=== PATIENT | female | born 1955 | race Caucasian/White ===

== ENCOUNTER 2016-08-01 09:34 | Outpatient (CLI) | payer BC ==
[2016-08-01 10:31] LABS: eGFR (African) > 60; eGFR (Non-African) > 60
--- NOTE | 2016-08-01 18:52 | Diagnostic Imaging Report ---
JAKOB COOL [facility] [address] [facility].[address] [address] Report Submission Date: Aug 01, 2016 10:03:24 AM CDT Patient Study Name: KENDY OTERO Date: Aug 01, 2016 9:42:42 AM CDT Modality Type: CR Gender: F Description: LOWER EXTREMITY : 59 Institution: [facility] Physician: JAKOB COOL Right foot 3 views History: Lateral foot pain for 4 months Findings: A small bunion is present. A moderate sized plantar heel spur is present. There is no fracture, dislocation, arthropathy, or focal bone lesion. Impression: Heel spur and bunion. Electronically signed on Aug 01, 2016 10:03:24 AM CDT by: Lio STEVEN
== END 2016-08-01 09:35 ==
LOC: LAB 09:34
PROVIDERS: ATTEND Family Medicine
DX: M79.671 Pain in right foot (principal); I10 Essential (primary) hypertension; R59.1 Generalized enlarged lymph nodes; Z11.59 Encounter for screening for other viral diseases
CPT/HCPCS: 36415; 73630; 80053; 80061; 85027; 86803

== ENCOUNTER 2016-08-07 13:06 | Outpatient (CLI) | payer BC ==
--- NOTE | 2016-08-08 15:13 | OP Clinic Progress Note ---
REFERRING PHYSICIAN: Dr. Khoa Muñoz REASON FOR VISIT: This 60-year-old female was seen with a mass in her left cheek area. She has noted this for about a month. It is not really painful. Patient does not smoke. 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 There is a 2 cm mass in the preauricular area on the left side. There is no gross cervical lymphadenopathy, although there is a moderate amount of adipose tissue. I do not feel a mass on the right side. 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 I went over risks, problems, complications. These include, but are not limited to, the incision which would leave a scar somewhat like a facelift-type of incision. There can be numbness. There can be facial nerve paralysis on a permanent basis looking like a stroke and causing orbital dryness and airway blockage, problems swallowing, whistling, talking, and multiple other issues. The possibility of needing additional surgery and additional treatment and recurrence of tumors. Again, I clearly went over the facial nerve anatomy. Postoperatively, we will be using pressure dressings until the wound dries up, which may be a week to 10 days and occasionally longer. A possibility of Kashif syndrome with gustatory sweating. The patient feels that she is well informed and so states. Though it is not essential to get an x-ray, I believe a CT scan with contrast may give some additional information. The patient, again, states that she feels comfortable. I have offered her a second opinion and she has declined this. CC: Dr. Koha STEVEN
== END 2016-08-07 13:07 ==
LOC: ENT 13:06
PROVIDERS: ATTEND Otolaryngology
DX: R22.1 Localized swelling, mass and lump, neck (principal)
CPT/HCPCS: 99203

== ENCOUNTER 2016-08-08 10:50 | Outpatient (CLI) | payer BC ==
--- NOTE | 2016-08-09 07:18 | Diagnostic Imaging Report ---
MELLISA SNEED [facility] [address] [facility].[address] [address] Report Submission Date: Aug 08, 2016 11:19:20 PM CDT Patient Study Name: KENDY OTERO Date: Aug 08, 2016 11:23:44 AM CDT Modality Type: CT\SR Gender: F Description: CT NECK SOFT TISSUE W/ : 59 Institution: [facility] Physician: MELLISA SNEED Computed tomography of the neck with contrast History: Left facial mass for 3 weeks Findings: Transverse neck sections are obtained after 89 mL intravenous omnipaque 350. An indeterminate hypodense nodule is present in the anterior superior aspect of the superficial lobe of the left parotid gland, measuring 1.7 x 1.8 x 2.1 cm. The lesion measures water density and is therefore potentially cystic. The thyroid, submandibular glands, and right parotid gland are normal. The larynx, pharynx, parapharyngeal spaces, and prevertebral space are normal. Lung apices are clear. There is no evidence of lymphadenopathy or inflammatory lesion. Visualized sinuses are clear. Moderate C6/C7 spondylosis is present. Impression: 1. Indeterminate 2.1 cm anterior left parotid nodule, possibly cystic. 2. C6/C7 spondylosis. Electronically signed on Aug 08, 2016 11:19:20 PM CDT by: Lio STVEEN
== END 2016-08-08 10:52 ==
LOC: RAD 10:50
PROVIDERS: ATTEND Otolaryngology
DX: R22.1 Localized swelling, mass and lump, neck (principal); Z04.9 Encounter for examination and observation for unspecified reason
CPT/HCPCS: 70491; Q9966

== ENCOUNTER 2016-08-14 12:49 | Outpatient (CLI) | payer BC ==
--- NOTE | 2016-08-15 12:00 | OP Clinic Progress Note ---
REFERRING PHYSICIAN: Dr. Khoa Muñoz REASON FOR VISIT: This 60-year-old lady has had a mass that is progressively enlarging in her left cheek. On a CT scan, there appears to be a mass in the superficial lobe of the parotid. It is fairly asymptomatic. Patient simply wanted to have it excised. I described parotid surgery with specific risks of facial nerve paralysis, either the whole nerve or part of the nerve, temporary or permanent, looking like a paralyzed face, eyelid droop, drooling, nasal airway obstruction, sagging face, not really being able to be corrected. The patient is clear about these issues. We went over it in the first clinic visit and I have gone over it in the second clinic visit. I showed the patient both reading the CT report and looking at the CT itself with her. She has been offered additional opinions, having somebody else do the surgery, not have surgery, needle sticks, fine-needle aspiration, and other issues. The patient feels like she understands and each time has acknowledged understanding of options and choices and different ways to go about surgery and being welcome to second opinions, facial nerve paralysis, numbness, Kashif Syndrome, and multiple issues. PLAN: Patient chooses to go ahead with the surgery and that is being arranged. cc: Dr. Khoa STEVEN
== END 2016-08-14 12:50 ==
LOC: ENT 12:49
PROVIDERS: ATTEND Otolaryngology
DX: R22.0 Localized swelling, mass and lump, head (principal)
CPT/HCPCS: 99203

== ENCOUNTER 2016-08-21 14:38 | Outpatient (CLI) | payer BC ==
--- NOTE | 2016-08-24 08:39 | OP Clinic Progress Note ---
REFERRING PHYSICIAN: Dr. Khoa Muñoz REASON FOR VISIT: Jo Ann is seen 2 days after her left-sided parotid surgery. 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 Postoperatively, she is doing overall well. She has a drain in and a pressure dressing of which she is attending to very well, along with her mother. It is only draining a moderately small amount of fairly clear serous/salivary tissue. The incision line appears to be healing well. She is taking an oral antibiotic in the form of Cipro 500 mg twice a day. PLAN: I would tend to leave the pressure dressing on and the drain in a while longer. She will set up an appointment in about 4 or 5 days for the office. If it seems like it is drying up here within about 48 hours from now, it is possible the drain might be removed sooner. I have reviewed these issues with the patient and she has a good understanding along with her mother. cc: Dr. Khoa STEVEN
== END 2016-08-21 14:40 ==
LOC: ENT 14:38
PROVIDERS: ATTEND Otolaryngology
DX: Z98.890 Other specified postprocedural states (principal)
CPT/HCPCS: 99213

== ENCOUNTER 2016-09-04 14:09 | Outpatient (CLI) | payer BC ==
--- NOTE | 2016-09-05 09:55 | OP Clinic Progress Note ---
REASON FOR VISIT: This 60-year-old lady is seen in follow up of a left-sided parotidectomy done August 19, 2016. She has overall done well. Her facial nerve is entirely intact. A small amount of numbness in the area is as predicted and not particularly bothersome. The incision site is healing well. She still has some discomfort in the temporalis muscle area on that left side. As the cystic mass that she had, also which is benign, was in the deep lobe in the superior aspect and the medial belly of the mass was fibrosed on masseter muscle. This would be consistent with still having some achiness in the superior origin of that muscle. More than likely it will resolve. There is no evident collection of fluid. She also has left lower calf discomfort. It is really in the lower third of the left calf, closer at and below the gastroc muscles. It is more in the midline. It bothers her just a little bit more on extension of the foot. There is no swelling. I am not sure of the etiology of it. Clinically, it does not appear to be a deep vein thrombosis-type of problem. She did have deep vein thrombosis antiembolic devices on for her surgery. PLAN: I think she should still go ahead and get an ultrasound to make sure that there is not a deep vein thrombosis issue. If that is cleared, I think she ought to have some physical therapy, maybe 3 days a week with some heat and diathermy and deep massage. We reviewed these issues with the patient. As these get done, I would like to see the patient back in about a month. cc: Dr. Khoa STEVEN
== END 2016-09-04 14:10 ==
LOC: ENT 14:09
PROVIDERS: ATTEND Otolaryngology
DX: Z98.890 Other specified postprocedural states (principal)
CPT/HCPCS: 99213

== ENCOUNTER 2016-09-05 10:57 | Outpatient (CLI) | payer BC ==
--- NOTE | 2016-09-05 22:57 | Diagnostic Imaging Report ---
[facility] [address] [facility].[address] [address] Report Submission Date: September 05, 2016 2:24:28 PM CDT Patient Study Name: KENDY OTERO Date: September 05, 2016 11:15:55 AM CDT Modality Type: US Gender: F Description: UNILAT LTD STDY EXT VEINS : 59 Institution: [facility] Physician MELLISA SNEED Duplex imaging of the left lower extremity CLINICAL HISTORY: Left calf pain for 3 weeks. TECHNIQUE: Real-time sonography of the left lower extremity is performed in transverse and longitudinal views. Doppler interrogation and color flow imaging are additionally used. FINDINGS: There are normal Doppler waveforms from the interrogated vessels with normal respiratory fluctuation and augmentation. There is no echogenic thrombus identified within the vessel lumen. The veins compress normally. There is a small hypoechoic collection in the lateral mid calf measuring 3.5 x 1.1 x 0.9 cm in size consistent with small fluid collection or hematoma. IMPRESSION: No evidence of deep venous thrombosis. Small fluid collection lateral mid calf. Electronically signed on September 05, 2016 2:24:28 PM CDT by: Chapo STEVEN
== END 2016-09-05 11:00 ==
LOC: RAD 10:57
PROVIDERS: ATTEND Otolaryngology
DX: I80.9 Phlebitis and thrombophlebitis of unspecified site (principal)
CPT/HCPCS: 93971

== ENCOUNTER 2016-10-09 15:40 | Outpatient (CLI) | payer BC ==
--- NOTE | 2016-10-10 15:08 | OP Clinic Progress Note ---
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 In the interval, she has done fine. She has really no residual pain. The wound is well healed. Her facial nerve function is right at 100%. There is not really any significant surgical vacuum defect. There is no evidence of Kashif's syndrome. She had some deep calf aches. She had an ultrasound to see if she had deep vein thrombosis and that was negative. She also saw physical therapy and even before she saw physical therapy, the calf aches had resolved. Overall, Jo Ann has done well. There has been an extremely low probability of recurrence of the fibrotic cyst that was in the upper portion of the parotid in the deep lobe. PLAN: Patient is discharged to the continued care of Dr. Muñoz. cc: Dr. Khoa STEVEN
== END 2016-10-09 15:42 ==
LOC: ENT 15:40
PROVIDERS: ATTEND Otolaryngology
DX: Z98.890 Other specified postprocedural states (principal)
CPT/HCPCS: 99213

== ENCOUNTER → 2017-04-11 | Outpatient (CLI) | payer BC ==
--- NOTE | 2017-04-11 15:10 | Diagnostic Imaging Report ---
JOE CAMERON [facility] [address] [facility] [address] [address] Report Submission Date: Apr 11, 2017 9:48:57 AM MICROCOMPUTER TECHNICIAN Patient Study Name: KENDY OTERO Date: Apr 11, 2017 9:28:48 AM MICROCOMPUTER TECHNICIAN Modality Type: CR Gender: F Description: LOWER EXTREMITY : 59 Institution: [facility] Physician: JOE CAMERON Examination: Plain film knee History: Knee discomfort Findings: 3 views of the knee demonstrates tibia spine medial articular and patellar spurring. Medial joint space narrowing. No fracture. No dislocation. No joint effusion. No soft tissue irregularity. Impression: Articular degenerative changes. No acute osseous abnormality Electronically signed on Apr 11, 2017 9:48:57 AM MICROCOMPUTER TECHNICIAN by: Luke STEVEN
== END ==
LOC: RAD 09:19
PROVIDERS: ATTEND Physician Assistant
DX: M25.562 Pain in left knee (principal)
CPT/HCPCS: 73560

== ENCOUNTER 2017-08-18 13:52 | Outpatient (CLI) | payer OTHER ==
--- NOTE | 2017-08-18 15:23 | Diagnostic Imaging Report ---
JAKOB COOL [facility] [address] [facility] [address] [address] Report Submission Date: Aug 18, 2017 2:29:40 PM CDT Patient Study Name: KENDY OTERO Date: Aug 18, 2017 2:00:00 PM CDT Modality Type: DX Gender: F Description: LOWER EXTREMITY : 59 Institution: [facility] Physician: JAKOB COOL Examination: Plain film right knee History: PT C/O LATERAL KNEE PAIN AFTER FALL X 2 MONTHS. (Hx) Findings: 3 views of the right knee demonstrates normal cortical margins. Tibial spine and patellar spurring. No fracture. No dislocation. No joint effusion. No soft tissue irregularity. Impression: Mild degenerative changes. No acute appearing osseous abnormality. Electronically signed on Aug 18, 2017 2:29:40 PM CDT by: Luke STEVEN
== END 2017-08-18 13:53 ==
LOC: RAD 13:52
PROVIDERS: ATTEND Family Medicine
DX: M25.561 Pain in right knee (principal)
CPT/HCPCS: 73562

== ENCOUNTER 2018-02-24 09:33 | Outpatient (CLI) | payer BC ==
--- NOTE | 2018-02-24 13:29 | Diagnostic Imaging Report ---
CRISTINA AGUDELO [facility] [address] [facility].[address] [address] Report Submission Date: Feb 24, 2018 11:20:36 AM CDT Patient Study Name: KENDY OTERO Date: Feb 24, 2018 10:14:41 AM CDT Modality Type: DX Gender: F Description: LOWER EXTREMITY : 59 Institution: [facility] Physician: CRISTINA AGUDELO Left knee History: Status post fall with pain AP and lateral projections of the left knee demonstrate moderate narrowing of medial compartment joint space with associated osteophytosis. Lateral and patellofemoral compartment joint space is maintained and there is no joint effusion. No acute osseous abnormalities are noted. Impression: Moderate narrowing of medial compartment joint space with associated osteophytosis. No acute osseous abnormality. No joint effusion. Electronically signed on Feb 24, 2018 11:20:36 AM CDT by: Monica STEVEN
--- NOTE | 2018-02-24 13:30 | Diagnostic Imaging Report ---
CRISTINA AGUDELO [facility] [address] [address] Report Submission Date: Feb 24, 2018 11:22:55 AM CDT Patient Study Name: KENDY OTERO Date: Feb 24, 2018 10:10:22 AM CDT Modality Type: DX Gender: F Description: LOWER EXTREMITY : 59 Institution: [facility] Physician: CRISTINA AGUDELO Right foot History: Chronic foot pain Three views of the right foot were obtained which demonstrate a large plantar calcaneal spur and small dorsal calcaneal spur. Minor degenerative findings of the 1st MTP joint are present. Otherwise, no osseous abnormalities are noted. Impression: Calcaneal spurring and minor degenerative findings of the 1st MTP joint as described. Otherwise, no osseous abnormality. Electronically signed on Feb 24, 2018 11:22:55 AM CDT by: Monica STEVEN
== END 2018-02-24 10:22 ==
LOC: RAD 09:33
PROVIDERS: ATTEND Physician Assistant
DX: M79.671 Pain in right foot (principal); M25.562 Pain in left knee
CPT/HCPCS: 73560; 73630

== ENCOUNTER 2018-07-08 09:29 | Outpatient (CLI) | payer BC ==
[2018-07-08 09:44] LABS: BASOPHILS % 1.6 (0.0-1.5); EOSINOPHILS % 1.4 % (0.0-6.8); MEAN CORPUSCULAR HEMOGLOBIN 28.8 pg (28.0-34.0); MONOCYTES % 6.3 % (0.0-11.0); NEUTROPHILS # 3.2 # k/uL (1.4-7.7)
[2018-07-08 10:04] LABS: eGFR (Non-African) > 60
== END 2018-07-08 09:32 ==
LOC: LAB 09:29
PROVIDERS: ATTEND Nurse Practitioner Family
DX: R19.7 Diarrhea, unspecified (principal)
CPT/HCPCS: 36415; 80053; 85025